=== PATIENT | male | born 1945 | race Caucasian/White ===

== ENCOUNTER → 2016-12-03 | Outpatient (CLI) | payer OTHER ==
[~2016-12-03] MED LIST: BIOT1TAB5 PO; CALC500C73 PO; CIPR-255 PO; CLC100 PO; CYAN10005 PO; DTR5 PO; EYED OPB; LOSA1TAB PO; MIRA1TAB3 PO; MULT-506 PO; OXYB5TAB21 PO; OXYC7.5T62 PO; SILD100T PO; TEMA15CA4 PO
[2016-12-03 13:21] LABS: ESTIMATED AVERAGE GLUCOSE 126 mg/dl; HA1C FLAG Normal (Normal)
[2016-12-03 14:02] LABS: ALT/SGPT 46 U/L (12-78); BLOOD UREA NITROGEN 18 mg/dl (7-18); CARBON DIOXIDE 27 mmol/L (21-32); CHLORIDE 107 mmol/L (98-107); CHOLESTEROL 147 mg/dl (0-200); GLUCOSE 101 mg/dl (70-99); POTASSIUM 4.3 mmol/L (3.5-5.1); SODIUM 142 mmol/L (136-145); TRIGLYCERIDES 166 mg/dl (0-150); VERY LOW DENSITY LIPOPROT CALC 33 mg/dl
[2016-12-03 14:05] LABS: CALCIUM 9.2 mg/dl (8.5-10.1)
[2016-12-03 14:06] LABS: ALB/GLOB RATIO 1.1 (0.9-2); ALKALINE PHOSPHATASE 109 U/L (45-117); AST/SGOT 30 U/L (15-37); CHOLESTEROL/HDL RATIO 3.8; HDL CHOLESTEROL 39 mg/dl; LDL CHOLESTEROL CALCULATED 75 mg/dl
[2016-12-04 09:53] LABS: AFP TUMOR MARKER SERUM 3.9 NG/ML (<6.1)
--- NOTE | 2016-12-07 11:46 | CODING QUERY MEDICAL NECESSITY ---
SUPPORTING DIAGNOSIS NEEDED A supporting diagnosis is required for the test/procedure performed on this patient in order for us to be reimbursed by the patient's insurance. Please provide a supporting diagnosis for the following test/procedure listed below next to the test name along with your signature. *If there is no additional diagnosis for this patient that would support the following test/procedure please document that below next to the test/procedure. Test(s)/Procedure(s) that require a supporting diagnosis: DOS 12/03 * PSA DIAGNOSIS: Provider Signature: Date: Thank you Sheri Becker [facility] Information Management Once completed, please kindly fax back to [phone] For questions please call [phone]
== END | disposition home or self-care (01) ==
LOC: C.LABMFLN 10:39
PROVIDERS: ATTEND Family Medicine
DX: E11.9 Type 2 diabetes mellitus without complications (principal); E78.5 Hyperlipidemia, unspecified; K74.60 Unspecified cirrhosis of liver; N52.9 Male erectile dysfunction, unspecified; Z12.5 Encounter for screening for malignant neoplasm of prostate

== ENCOUNTER → 2017-01-15 | Outpatient (CLI) | payer OTHER | END | disposition home or self-care (01) | LOC: C.LABMFLN 08:26 | PROVIDERS: ATTEND Urology | DX: N40.0 Benign prostatic hyperplasia without lower urinary tract symptoms (principal) ==

== ENCOUNTER → 2017-01-23 | Outpatient (CLI) | payer OTHER | END | disposition home or self-care (01) | LOC: C.PATHSPEC 17:17 | PROVIDERS: ATTEND Urology | DX: R97.20 Elevated prostate specific antigen [PSA] (principal); C61 Malignant neoplasm of prostate ==

== ENCOUNTER → 2017-02-04 | Outpatient (CLI) | payer OTHER ==
[~2017-02-04] MED LIST changes: +OPTIRAY 320 IV PRN
--- NOTE | 2017-02-04 12:29 | DIAGNOSTIC IMAGING REPORT ---
CT OF THE ABDOMEN AND PELVIS WITH CONTRAST CLINICAL HISTORY: Prostate cancer. COMPARISON STUDY: None. TECHNIQUE: Following IV administration of 119 mL of Optiray-320, axial images of the abdomen and pelvis were obtained from the lung bases to the proximal femurs. Images were reviewed in the axial, sagittal, and coronal planes. IV contrast was administered without complication. CT DOSE: 1063.31 mGycm FINDINGS: The caudate lobe is enlarged and there is slight nodularity of the liver surface. There are small varices within the abdomen, including esophageal varices. Sizes spleen is at the upper limits of normal. There is trace ascites within the pelvis and right paracolic gutter. There is no evidence for a bowel obstruction. The adrenal glands, kidneys and pancreas are normal. The patient status post Sylvie-en-Y gastric bypass. There is no evidence for a bowel obstruction. There is a small fat-containing umbilical hernia. No enlarged abdominal or pelvic lymph nodes are present. No suspicious osseous lesions are present. IMPRESSION: 1. No evidence of metastatic disease within the abdomen or pelvis. 2. Suspected cirrhosis with trace ascites and varices formation. Electronically signed by: Blaine Wakefield M.D. 02/04/2017 12:28 PM Dictated Date/Time: 02/04/2017 12:08 PM
--- NOTE | 2017-02-04 13:29 | DIAGNOSTIC IMAGING REPORT ---
WHOLE-BODY NUCLEAR BONE SCAN CLINICAL HISTORY: Prostate cancer. COMPARISON STUDY: Abdominal CT dated 02/04/2017. Chest x-rays dictated 06/01/2016. TECHNIQUE: Three hours following the IV administration of 27.2 mCi of technetium 99m MDP, whole body nuclear bone scan was performed in the anterior and posterior projections. FINDINGS: There is no abnormal osseous tracer deposition identified typical in appearance for bony metastatic disease. Typically degenerative uptake is identified in the shoulders, hips, knees, and ankles. There is expected excreted activity within the renal collecting system and bladder. IMPRESSION: There is no scintigraphic evidence of osseus metastatic disease. Electronically signed by: Rodrigo Mckee M.D. 02/04/2017 1:27 PM Dictated Date/Time: 02/04/2017 1:25 PM
== END | disposition home or self-care (01) ==
LOC: C.NUCL 09:42
PROVIDERS: ATTEND Urology
DX: C61 Malignant neoplasm of prostate (principal)

== ENCOUNTER 2017-03-07 05:31 | Inpatient (IN) | payer OTHER ==
[2017-02-18 09:24] VITALS: BMI 31.0
--- NOTE | 2017-02-18 09:57 | PAT Medication Instructions ---
Service Date Feb 18, 2017. Current Home Medication List Biotin (Biotin), 1 TAB PO QAM Calcium Carbonate (Calcium), 2 TABS PO QAM Cyanocobalamin (Vitamin B-12), 1,000 MCG PO QAM Losartan Potassium (Cozaar), 1 TAB PO QAM Multivitamin (Multivitamin), 1 TAB PO QAM Sildenafil Citrate (Viagra), 1 TAB PO DAILY PRN for UNDECIDED Temazepam (Restoril), 15 MG PO HS PRN for Insomnia Medication Instructions For Your Scheduled Surgery - Hold the following medications 2 weeks prior to surgery: Biotin (Biotin), 1 TAB PO QAM - Hold the following medications the morning of surgery: Calcium Carbonate (Calcium), 2 TABS PO QAM Cyanocobalamin (Vitamin B-12), 1,000 MCG PO QAM Losartan Potassium (Cozaar), 1 TAB PO QAM Multivitamin (Multivitamin), 1 TAB PO QAM Sildenafil Citrate (Viagra), 1 TAB PO DAILY PRN - Take the following medications as scheduled the night before surgery: Temazepam (Restoril), 15 MG PO HS PRN for Insomnia Nothing to eat or drink after midnight If you have any questions please call us at [phone] or [phone] or [phone]
[2017-02-18 10:19] LABS: BASO % 0.5 %; BASO ABS # 0.03 K/uL (0-0.2); COMPLETE YES; EOS % 1.9 %; HEMATOCRIT 45.7 % (42-52); IG% 0.2 %; LYMPH % 38.1 %; MEAN CELL VOLUME 88.6 fL (80-100); MEAN CORPUSCULAR HEMOGLOBIN 29.8 pg (25-34); MEAN CORPUSCULAR HGB CONC 33.7 g/dl (32-36); MEAN PLATELET VOLUME 9.9 fL (7.4-10.4); NEUT % 46.3 %; PLATELET COUNT 191 K/uL (130-400); RED BLOOD COUNT 5.16 M/uL (4.7-6.1); WHITE BLOOD COUNT 5.78 K/uL (4.8-10.8)
[2017-02-18 10:23] LABS: URINE APPEARANCE CLEAR (CLEAR); URINE BILIRUBIN NEG (NEG); URINE COLOR YELLOW; URINE NITRITE NEG (NEG); URINE PH 6.5 (4.5-7.5); URINE SPECIFIC GRAVITY 1.016 (1.000-1.030); UROBILINOGEN NEG (NEG)
[2017-02-18 10:51] LABS: BUN/CREATININE RATIO 15.4 (10-20); CALCIUM 9.1 mg/dl (8.5-10.1); CREATININE 1.1 mg/dl (0.60-1.40); POTASSIUM 4.4 mmol/L (3.5-5.1)
[2017-02-18 10:53] LABS: MANUAL MICROSCOPIC REQUIRED? NO; REVIEW REQ? NO
[~2017-03-07] VITALS: Ht 188 cm; Wt 110.0 kg
[2017-03-07] VITALS (8 sets, daily range): BP systolic 109–144; BP diastolic 71–91; PULSE 83–95; TEMP 36.5–37.2; O2SAT 93–97; Ht 188 cm; Wt 110.0 kg
[~2017-03-07 05:31] MED LIST changes: -CIPR-255 PO; -CLC100 PO; -DTR5 PO; -EYED OPB; -MIRA1TAB3 PO; -OPTIRAY 320 IV PRN; -OXYB5TAB21 PO; -OXYC7.5T62 PO
[2017-03-07] MEDS ORDERED: LACTATED RINGER'S 1000ML 1,000 ML IV SCH (06:00)
[2017-03-07] MEDS ORDERED: CEFAZOLIN 2000 MG/60 ML D5W IV SCH (06:00)
[2017-03-07] MEDS ORDERED: HEPARIN SOD 5000 UNIT/0.5 ML CARP SQ SCH (06:00)
[2017-03-07] MEDS ORDERED: EYED OPB (06:26)
--- NOTE | 2017-03-07 07:12 | History & Physical Bridge Note ---
H&P Re-Evaluation Bridge Note: I have examined the patient, reviewed the History & Physical and in the interval since the performance of the History & Physical I have noted the following changes of clinical significance: No changes noted
[2017-03-07] MEDS ORDERED: EpHEDrine SULFATE INJ 50 MG/ML AMP IV PRN (07:15)
[2017-03-07] MEDS ORDERED: ONDANSETRON INJ 2 MG/ML 2 ML VIAL IV PRN ×2 (07:15→11:00)
[2017-03-07] MEDS ORDERED: FENTANYL CITRATE INJ 50 MCG/1 ML 2 ML VIAL IV PRN (07:15)
[2017-03-07] MEDS ORDERED: ATROPINE SULFATE 0.1 MG/ML 5ML SYR IV PRN (07:15)
[2017-03-07] MEDS ORDERED: HYDROmorphone INJ 1 MG/ML SYR IV PRN ×2 (07:15→11:00)
[2017-03-07] MEDS ORDERED: DEXAMETHASONE SOD INJ 4 MG/ML VIAL ONE (07:32)
[2017-03-07] MEDS ORDERED: ONDANSETRON INJ 2 MG/ML 2 ML VIAL ONE (07:32)
[2017-03-07] MEDS ORDERED: GLYCOPYRROLATE INJ 0.2 MG/ML VIAL ONE (07:32)
[2017-03-07] MEDS ORDERED: LARYING-O-JET KIT (LTA) ONE ×2 (07:32)
[2017-03-07] MEDS ORDERED: EpHEDrine SULFATE 50MG/5ML SYR ONE (07:32)
[2017-03-07] MEDS ORDERED: PHENYLEPHRINE 100MCG/ML 5ML SYR ONE (07:32)
[2017-03-07] MEDS ORDERED: FENTANYL CITRATE INJ 50 MCG/1 ML 2 ML VIAL ONE ×2 (07:32→09:18)
[2017-03-07] MEDS ORDERED: MIDAZOLAM HCL 1 MG/ML 2ML VIAL ONE (07:32)
[2017-03-07] MEDS ORDERED: PROPOFOL IV EMULSION 10 MG/ML 20 ML VIAL IV ONE (07:32)
[2017-03-07] MEDS ORDERED: NEOSTIGMINE METHYLSULFATE 5 MG/5 ML SYR ONE (07:32)
[2017-03-07] MEDS ORDERED: ROCURONIUM BROMIDE 10 MG/ML 5 ML VIAL ONE (07:32)
[2017-03-07] MEDS ORDERED: LIDOCAINE HCL 2% 2 ML VIAL (20MG/ML) ONE (07:32)
[2017-03-07] MEDS ORDERED: BUPIVACAINE 0.5 % 5 MG/1 ML MPF 30ML VIAL ONE (07:33)
[2017-03-07] MEDS ORDERED: HYDROmorphone INJ 2 MG/ML SYR/VIAL ONE (08:21)
[2017-03-07] MEDS ORDERED: OXYCODONE/ACETAMINOPHEN 7.5-325 TAB PO PRN (11:00)
[2017-03-07] MEDS ORDERED: ACETAMINOPHEN 500 MG TAB PO SCH (11:00)
[2017-03-07] MEDS ORDERED: TEMAZEPAM 15 MG CAP PO PRN (11:00)
[2017-03-07] MEDS ORDERED: ACETAMINOPHEN 1000 MG/100 ML IV IV ONE (11:03)
--- NOTE | 2017-03-07 11:08 | [facility] Post Operative Brief Note ---
Immediate Operative Summary Operative Date Mar 07, 2017. Pre-Operative Diagnosis cT2a Sh[place] 5+5 Prostate cancer Post-Operative Diagnosis Same as preop Procedure(s) Performed Robotic-assisted Laparoscopic Prostatectomy,with bilateral pelvic lymph node dissection Surgeon Dr. Antoni Sutherland Hazmat Tanker Driver Surgeon(s) SCOOBY Nicole Estimated Blood Loss 100 cc Findings Watertight anastomosis, excellent hemostasis Specimens A: kavitha-prostatic fat B: prostate and seminal vesicles C: right pelvic lymph nodes D: left pelvic lymph nodes (clip) Drains 18 fr david, #10 LLQ CRISTINA drain Anesthesia GAET + local Complication(s) None Disposition Recovery Room / PACU
--- NOTE | 2017-03-07 11:20 | [facility] Operative Report ---
Operative Report Operative Date Mar 07, 2017. Pre-Operative Diagnosis cT2a [place] 5+5 Prostate cancer Post-Operative Diagnosis Same as preop Procedure(s) Performed Robotic-assisted Laparoscopic Prostatectomy,with bilateral pelvic lymph node dissection Surgeon Dr. Antoni Sutherland [place] Cutter Surgeon(s) SCOOBY Nicole Estimated Blood Loss 100 cc Findings Watertight anastomosis, excellent hemostasis. Specimens A: kavitha-prostatic fat B: prostate and seminal vesicles C: right pelvic lymph nodes D: left pelvic lymph nodes (clip) Drains 18 fr vivar, #10 LLQ CRISTINA drain Anesthesia GAET + local Complication(s) None Disposition Recovery Room / PACU Indications Patient is a 71-year-old male with a prostate nodule and elevated PSA of approximately 10 was been found to have high-grade prostate cancer all positive cores being on the left side of the prostate gland. After discussion of risks and benefits he is being brought in today for surgical management of this disease. He understands the high risk for the need for further therapy including androgen deprivation and salvage radiation therapy in the future. Lymph node dissection is planned. Seen that he lives in [place] a suprapubic tube will not be placed. Please see H&P for further details. Description of Procedure Patient was properly identified and brought to the operative suite after identification of appropriate consent in the chart. General anesthesia with endotracheal patient was initiated and patient was prepped and draped in the standard fashion for this procedure. Full timeout procedure was followed. All port sites were anesthetized with local prior to incision. A supraumbilical incision was made and the abdomen was entered under direct visualization using a visual obturator. Abdomen was insufflated to 15 mmHg and ports were placed for a fourth arm robotic template including 2 left-sided 7 mm robotic ports, one right 7 mm robotic port and a 12 and 5 mm traffic assistant port. Adhesions were noted in the right upper quadrant at the site of the patient's previous surgery with these were well removed from the surgical field. Patient was placed in Trendelenburg and robot was brought in and docked. Bladder was drained with a Vivar catheter prior to initiation of surgery. Bladder was dropped to the level of the pubic bone and prostate was defatted. This was sent for pathologic analysis. Endopelvic fascia was sharply entered and dissection was carried out to the level of the apex on both sides while skeletonizing the dorsal venous complex. This was then controlled using an 0 Vicryl suture on a CT1 needle in a [id number] fashion. Seen the lack of any positive biopsies on the right hand side nerve sparing dissection was initiated as planned. A wider dissection was carried out on the left-hand side. 30 down lens was then used to visualize the bladder neck and to place it on traction. Dissection was carried down through the bladder neck to the level of the Vivar with an excellent small aperture to the bladder neck. This was divided and Vivar was used for anterior traction. Posterior dissection was carried out, dropping the bladder neck and rapidly encountering the vas deferens and seminal vesicles in the midline. Vessels were controlled using monopolar and bipolar cautery and the vas deferens were divided. Rectum was dropped in the midline down to the level of the apex of the prostate. Seminal vesicles were dissected free intact. Attention was turned to the prostatic pedicles. On the right- hand side these were controlled using cold Weck clips and cold scissors to allow for a full nerve sparing dissection to the level of the apex. On the left -hand side the vessel suture was used to control the pedicle in a wider dissection was carried out care being taken to avoid any injury to the rectum. After this was complete the dorsal venous complex was divided and urethra was skeletonized. Care was taken to avoid violation of the apex of the prostate gland. Urethra was divided as well as the rectourethralis fibers. Prostate was then removed from the pelvis and placed within an Endo Catch bag for retrieval at the end of the case. Attention was turned to the pelvis were excellent hemostasis was appreciated. Rectum was insufflated under saline irrigation and noted to be free of any injuries or perforations. Attention was then turned to the pelvic lymph node dissection. This was carried out using the confines of the external iliac artery and vein pelvic sidewall and obturator nerve on both sides. Weck clips, bipolar and monopolar cautery were used as necessary to control small vessels and lymphatics. The left-handed pelvic lymph node packet was labeled with a clip prior to completion. Excellent hemostasis was noted on both sides after completion of case. Surgicel was left in the right obturator fossa. After this was complete the lymph node packets were placed within an Endo Catch bag for retrieval. A running anastomosis was performed between the bladder neck and urethra using a double-armed V-lock suture. Excellent apposition of the urethra bladder neck was noted. Vivar catheter was visualized entering the bladder prior to completion of closure. 10 mL of sterile water were placed within the balloon and anastomosis was tested with greater than 120 mL of sterile saline and noted to be watertight. Catheter was placed to gravity drainage and fourth arm was removed. #10 CRISTINA drain was brought in via the fourth arm port and placed within the pelvis while avoiding placing it directly over the anastomosis. Robotic instruments were removed and robot was de-docked. Strings to the Endo Catch bag were brought up through the supraumbilical port which was then expanded sufficiently to allow for easy removal of the specimen bags. Excess carbon dioxide gas was removed from the abdomen and the supraumbilical incision was closed at the level of the fascia using an 0 Vicryl suture on a UR 5 needle. 2- 0 silk was used to secure the drain in place and 4-0 Monocryl were used at the skin incisions as well as Dermabond. Anesthesia was reversed and patient was transferred to the recovery room in stable condition. He will be admitted for standard postoperative management. I attest to the content of the Intraoperative Record and any orders documented therein. Any exceptions are noted below.
[2017-03-07 11:25] LABS: MEAN CELL VOLUME 89.1 fL (80-100); MEAN CORPUSCULAR HEMOGLOBIN 29.6 pg (25-34); MEAN PLATELET VOLUME 9.4 fL (7.4-10.4); PLATELET COUNT 198 K/uL (130-400); RED BLOOD COUNT 4.94 M/uL (4.7-6.1); WHITE BLOOD COUNT 9.42 K/uL (4.8-10.8)
[2017-03-07 11:50] LABS: BUN/CREATININE RATIO 13.6 (10-20); CALCIUM 8.4 mg/dl (8.5-10.1); CREATININE 1.2 mg/dl (0.60-1.40); POTASSIUM 4.9 mmol/L (3.5-5.1)
--- NOTE | 2017-03-07 11:56 | Anesthesiology Progress Note ---
Anesthesia Post Op Note Date & Time Mar 07, 2017 at 11:56 Vital Signs Pain Intensity: 0 Vital Signs Past 12 Hours Date Time Temp Pulse Resp B/P (MAP) Pulse Ox O2 Delivery O2 Flow Rate FiO2 03/07/17 11:38 36.6 89 16 140/81 (103) 95 Nasal Cannula 3 03/07/17 11:26 137/87 03/07/17 11:23 95 7 97 03/07/17 11:23 95 7 03/07/17 11:21 131/93 03/07/17 11:18 99 10 96 03/07/17 11:18 99 10 03/07/17 11:13 96 10 96 03/07/17 11:13 96 10 03/07/17 11:11 123/82 03/07/17 11:08 96 7 96 03/07/17 11:08 96 7 03/07/17 11:06 147/78 03/07/17 11:04 129/92 03/07/17 11:03 101 11 03/07/17 11:03 36.6 100 14 129/92 95 Mask 10 03/07/17 11:03 100 11 95 03/07/17 05:47 36.5 83 20 144/91 (108) 94 Room Air Notes Mental Status: alert / awake / arousable, participated in evaluation Pt Amnestic to Procedure: Yes Nausea / Vomiting: adequately controlled Pain: adequately controlled Airway Patency, RR, SpO2: stable & adequate BP & HR: stable & adequate Hydration State: stable & adequate Anesthetic Complications: no major complications apparent
[2017-03-07 12:25] LABS: MEAN CORPUSCULAR HGB CONC 33.2 g/dl (32-36)
[2017-03-07] MEDS: LACTATED RINGER'S 1000ML 1,000 ML IV SCH ×3 (13:22→22:56)
[2017-03-07] MEDS ORDERED: OXYBUTYNIN CHLORIDE 5 MG TAB PO PRN (14:00)
[2017-03-07] MEDS: KETOROLAC TROMETHAMINE 15 MG/ML VIAL IV PRN ×2 (14:42→20:53)
[2017-03-07 15:12] LABS: PROTHROMBIN TIME (PATIENT) 11.2 SECONDS (9.0-12.0)
[2017-03-07] MEDS: CEFAZOLIN IV 2,000 MG in DEXTROSE 5% 50ML 50 ML IV SCH (18:17)
[2017-03-07] MEDS: HEPARIN SOD 5000 UNIT/0.5 ML CARP SQ SCH (18:25)
[2017-03-07] MEDS: DOCUSATE SODIUM 100 MG CAP PO SCH (20:36)
[2017-03-07] MEDS: ACETAMINOPHEN IV 1,000 MG in EMPTY BAG 0 ML IV SCH (21:40)
[2017-03-08] MEDS: CEFAZOLIN IV 2,000 MG in DEXTROSE 5% 50ML 50 ML IV SCH ×2 (02:17→09:53)
[2017-03-08 03:32] VITALS: BP 136/87; PULSE 88; TEMP 37.1; O2SAT 92
[2017-03-08] MEDS: ACETAMINOPHEN IV 1,000 MG in EMPTY BAG 0 ML IV SCH (05:32)
[2017-03-08] MEDS: LACTATED RINGER'S 1000ML 1,000 ML IV SCH ×2 (05:32→08:33)
[2017-03-08] MEDS: KETOROLAC TROMETHAMINE 15 MG/ML VIAL IV PRN ×2 (06:30→12:22)
[2017-03-08] MEDS: HEPARIN SOD 5000 UNIT/0.5 ML CARP SQ SCH (06:31)
[2017-03-08 06:56] LABS: BASO % 0.2 %; BASO ABS # 0.02 K/uL (0-0.2); COMPLETE YES; EOS % 0.5 %; HEMATOCRIT 42.2 % (42-52); IG% 0.2 %; LYMPH % 24.9 %; LYMPH ABS # 2.36 K/uL (1.2-3.4); MEAN CELL VOLUME 89.4 fL (80-100); MEAN CORPUSCULAR HEMOGLOBIN 29.4 pg (25-34); MEAN CORPUSCULAR HGB CONC 32.9 g/dl (32-36); MEAN PLATELET VOLUME 9.5 fL (7.4-10.4); MONO % 9.4 %; NEUT % 64.8 %; PLATELET COUNT 183 K/uL (130-400); RED BLOOD COUNT 4.72 M/uL (4.7-6.1); WHITE BLOOD COUNT 9.47 K/uL (4.8-10.8)
[2017-03-08 07:25] VITALS: BP 112/78; PULSE 78; TEMP 37; O2SAT 91
[2017-03-08 07:27] VITALS: O2SAT 91
[2017-03-08 07:29] LABS: CALCIUM 8.3 mg/dl (8.5-10.1); CREATININE 1.1 mg/dl (0.60-1.40); POTASSIUM 4.1 mmol/L (3.5-5.1)
--- NOTE | 2017-03-08 07:37 | Anesthesiology Progress Note ---
Anesthesia Post Op Note Date & Time Mar 08, 2017 at 07:37 Vital Signs Pain Intensity: 2.0 Vital Signs Past 12 Hours Date Time Temp Pulse Resp B/P (MAP) Pulse Ox O2 Delivery O2 Flow Rate FiO2 03/08/17 07:27 91 Room Air 03/08/17 07:25 37.0 78 14 112/78 (89) 91 Room Air 03/08/17 03:32 37.1 88 16 136/87 (103) 92 Room Air 03/07/17 22:44 37.2 86 18 109/71 (84) 93 Room Air 03/07/17 19:55 37.2 89 18 119/71 (87) 93 Room Air 03/07/17 19:45 Room Air Notes Mental Status: alert / awake / arousable, participated in evaluation Pt Amnestic to Procedure: Yes Nausea / Vomiting: adequately controlled Pain: adequately controlled Airway Patency, RR, SpO2: stable & adequate BP & HR: stable & adequate Hydration State: stable & adequate Anesthetic Complications: no major complications apparent
[2017-03-08] MEDS: DOCUSATE SODIUM 100 MG CAP PO SCH (08:36)
--- NOTE | 2017-03-08 08:48 | Progress Note ---
Subjective Date of Service: Mar 08, 2017. Subjective Pt evaluation today including: conversation w/ patient, physical exam, chart review, lab review, review of inpatient medication list Pain: Incisional and lower abdominal, controlled PO Intake: Tony clears Voiding: david catheter in place (urine clearing, light pink) 71 yo male POD#1 s/p RALRP, BPLND. He has been ambulatory, tony clears, no emesis , some incisional pain. Feels well overall, CRISTIAN OP ~ 70 cc per shift, but history of ascites is noted. No other complaints. Review of Systems Constitutional: No fever, No chills Eyes: No worsening of vision ENT: No hearing loss Respiratory: No sputum, No wheezing, No shortness of breath Cardiac: No chest pain Abdomen: + pain, No nausea, No vomiting Male : + hematuria (resolving) Neurologic: No memory loss Psychiatric: No depression symptoms Endo: No fatigue Skin: No new/changing skin lesions Objective Vital Signs Date Time Temp Pulse Resp B/P (MAP) Pulse Ox O2 Delivery O2 Flow Rate FiO2 03/08/17 07:27 91 Room Air 03/08/17 07:25 37.0 78 14 112/78 (89) 91 Room Air 03/08/17 03:32 37.1 88 16 136/87 (103) 92 Room Air 03/07/17 22:44 37.2 86 18 109/71 (84) 93 Room Air 03/07/17 19:55 37.2 89 18 119/71 (87) 93 Room Air 03/07/17 19:45 Room Air 03/07/17 15:15 36.9 83 18 128/85 (99) 94 Nasal Cannula 2.0 03/07/17 14:20 36.7 90 18 130/85 (100) 95 Room Air 03/07/17 13:16 37.1 88 18 144/88 (106) 97 Nasal Cannula 2.0 03/07/17 12:45 37.0 87 16 142/91 (108) 94 Nasal Cannula 2.0 03/07/17 12:15 93 Nasal Cannula 2.0 03/07/17 12:15 36.8 95 16 125/85 (98) 93 Nasal Cannula 2.0 03/07/17 12:15 93 Nasal Cannula 2.0 03/07/17 12:07 90 14 03/07/17 12:07 90 14 93 03/07/17 12:06 134/86 03/07/17 12:02 88 12 93 03/07/17 12:02 88 12 03/07/17 12:01 124/90 03/07/17 11:57 91 8 03/07/17 11:57 91 8 125/81 92 03/07/17 11:52 89 8 03/07/17 11:52 88 8 93 03/07/17 11:51 135/87 03/07/17 11:47 88 5 94 03/07/17 11:47 88 5 03/07/17 11:46 128/93 03/07/17 11:44 140/81 03/07/17 11:42 90 7 03/07/17 11:42 90 7 95 03/07/17 11:41 147/89 03/07/17 11:38 36.6 89 16 140/81 (103) 95 Nasal Cannula 3 03/07/17 11:37 91 8 03/07/17 11:37 91 8 95 03/07/17 11:36 148/89 03/07/17 11:32 90 6 97 03/07/17 11:32 91 6 03/07/17 11:31 149/79 03/07/17 11:27 97 7 97 03/07/17 11:27 96 7 03/07/17 11:26 137/87 03/07/17 11:23 95 7 97 03/07/17 11:23 95 7 03/07/17 11:21 131/93 03/07/17 11:18 99 10 96 03/07/17 11:18 99 10 03/07/17 11:13 96 10 96 03/07/17 11:13 96 10 03/07/17 11:11 123/82 03/07/17 11:08 96 7 96 03/07/17 11:08 96 7 03/07/17 11:06 147/78 03/07/17 11:04 129/92 03/07/17 11:03 101 11 03/07/17 11:03 36.6 100 14 129/92 95 Mask 10 03/07/17 11:03 100 11 95 Physical Exam General Appearance: WD/WN, no apparent distress ENT: hearing grossly normal Neck: supple, no adenopathy Respiratory/Chest: no respiratory distress, no accessory muscle use Cardiovascular: no JVD Abdomen: non tender, soft, + pertinent finding (inc c/d/i) Extremities: non-tender Neurologic/Psychiatric: alert, oriented x 3 Skin: normal color Laboratory Results Last 24 Hours Test 03/07/17 11:14 03/07/17 14:40 03/08/17 06:34 White Blood Count 9.42 K/uL 9.47 K/uL Red Blood Count 4.94 M/uL 4.72 M/uL Hemoglobin 14.6 g/dL 13.9 g/dL Hematocrit 44.0 % 42.2 % Mean Corpuscular Volume 89.1 fL 89.4 fL Mean Corpuscular Hemoglobin 29.6 pg 29.4 pg Mean Corpuscular Hemoglobin Concent 33.2 g/dl 32.9 g/dl RDW Standard Deviation 45.8 fL 46.0 fL RDW Coefficient of Variation 14.0 % 14.1 % Platelet Count 198 K/uL 183 K/uL Mean Platelet Volume 9.4 fL 9.5 fL Sodium Level 140 mmol/L 140 mmol/L Potassium Level 4.9 mmol/L 4.1 mmol/L Chloride Level 107 mmol/L 104 mmol/L Carbon Dioxide Level 27 mmol/L 30 mmol/L Anion Gap 6.0 mmol/L 6.0 mmol/L Blood Urea Nitrogen 16 mg/dl 17 mg/dl Creatinine 1.20 mg/dl 1.10 mg/dl Est Creatinine Clear Calc Drug Dose 76.7 ml/min 83.7 ml/min Estimated GFR () 71.1 79.0 Estimated GFR (Non- 61.3 68.1 BUN/Creatinine Ratio 13.6 15.0 Random Glucose 137 mg/dl 95 mg/dl Calcium Level 8.4 mg/dl 8.3 mg/dl Prothrombin Time 11.2 SECONDS Prothromb Time International Ratio 1.0 Hepatitis C Antibody Screen NEG Neutrophils (%) (Auto) 64.8 % Lymphocytes (%) (Auto) 24.9 % Monocytes (%) (Auto) 9.4 % Eosinophils (%) (Auto) 0.5 % Basophils (%) (Auto) 0.2 % Neutrophils # (Auto) 6.13 K/uL Lymphocytes # (Auto) 2.36 K/uL Monocytes # (Auto) 0.89 K/uL Eosinophils # (Auto) 0.05 K/uL Basophils # (Auto) 0.02 K/uL Immature Granulocyte % (Auto) 0.2 % Immature Granulocyte # (Auto) 0.02 K/uL Assessment and Plan A/P 71 yo male POD#1 s/p RALRP, BPLND Doing well Advance diet today, continue with ambulation Expect DC CRISTINA and DC home after lunch DC instructions and OP f/u reviewed Patient vocalizes understanding of the treatment plan.
[2017-03-08] MEDS ORDERED: OXYC7.5T62 PO (08:56)
[2017-03-08] MEDS ORDERED: CIPR-255 PO (08:56)
[2017-03-08] MEDS ORDERED: DTR5 PO (08:56)
[2017-03-08] MEDS ORDERED: CLC100 PO (08:56)
--- NOTE | 2017-03-08 08:59 | Discharge Instructions ---
Discharge Instructions Date of Service Mar 08, 2017. Admission Reason for Admission: Prostate Cancer Discharge Discharge Diagnosis / Problem: Prostate Cancer Discharge Goals Goal(s): Decrease discomfort, Improve disease control, Prevent Disease Progression Activity Recommendations Activity Limitations: per Instructions/Follow-up section . Instructions / Follow-Up Instructions / Follow-Up 1. Do not lift >15lbs x 6 weeks. 2. No heavy exercise x 6 weeks. You may engage in light activity such as walking and stairs as tolerated. 3. No sexual intercourse until cleared by Dr. Sutherland or Dr. Alejandre. 4. Do not drive x [address] while taking narcotics. 5. Finish all of the antibiotic you have been prescribed. 6. Immediately call our office at [phone] if your catheter is removed for any reason. 7. Follow-up as scheduled. Please call our office at [phone] if you need to reschedule for any reason. . Current Hospital Diet Hospital Diet(s): Regular Diet Discharge Diet Recommended Diet: Regular Diet Procedures Procedures Performed: Robotic-assisted Laparoscopic Prostatectomy,with bilateral pelvic lymph node dissection Pending Studies Studies pending at discharge: no Medical Emergencies . Who to Call and When: Medical Emergencies: If at any time you feel your situation is an emergency, please call 911 immediately. . Non-Emergent Contact Non-Emergency issues call your: Primary Care Provider, Urologist Call Non-Emergent contact if: temperature is above 101 . . "Provider Documentation" section prepared by Trinity Hendrickson. . VTE Core Measure Inpt VTE Proph given/why not?: Unfractionated heparin SQ, SCD's [place] Drug Monitoring Program Search Results: no issues identified
[2017-03-08] MEDS ORDERED: CALCIUM CARBONATE PO SCH (09:00)
[2017-03-08] MEDS ORDERED: MULTIVITAMIN TAB PO SCH (09:00)
[2017-03-08] MEDS ORDERED: CYANOCOBALAMIN 500 MCG TAB (VIT B-12) PO SCH (09:00)
[2017-03-08] MEDS ORDERED: LOSARTAN POTASSIUM 25 MG TAB PO SCH (09:00)
[2017-03-08 09:24] VITALS: BP 112/78; PULSE 78; TEMP 37; O2SAT 91
[2017-03-08 11:43] VITALS: BP 120/74; PULSE 82; TEMP 36.9; O2SAT 90
--- NOTE | 2017-03-20 08:34 | Discharge Summary ---
Discharge Summary Date of Service Mar 20, 2017. Discharge Summary Admission Date: Mar 07, 2017 at 10:55 Discharge Date: Mar 08, 2017 Discharge Disposition: Home Primary Diagnosis: Prostate cancer Procedures: Robotic prostatectomy on 03/07/2017 Consultations: None Pending Studies/Follow-Up: Pathology report Discharge Instructions Last Recorded Wt (Kilograms): 110.000 Activity Recommendations: lifting limitation (20 lbs), shower/bathe limit (as listed) Return to School/Work: limitations Diet At Discharge: Regular Allergies: Coded Allergies: No Known Allergies (Unverified , 03/07/17) Home Health Services: none Special Care: Call your doctor if: * Temperature above 101 degrees * Pain not relieved by pain medicine ordered * There is increased drainage or redness from any incision * You have any unanswered questions or concerns. Avoid all tobacco products. If you need help to stop smoking, call [place]'s FREE QUITLINE at . This is a free call. Admission Information Historian: patient Severity: moderate Complaint Status: improved Admission HPI: 71-year-old male found as an outpatient after prostate biopsy to have adenocarcinoma of the prostate has chosen robotic prostatectomy to manage his disease. See H&P for further details. He is being admitted for this purpose Hospital Course Patient was admitted to the hospital after uncomplicated robotic prostatectomy is planned. Please see operative report for further details. Over the following postoperative days his diet and activity were rapidly advanced. A postoperative day #1 he was ambulatory in the hallways, tolerating regular diet and considered stable for discharge home. He was comfortable on oral pain medication. No worrisome changes and labs were noted. Please see discharge instruction sheet and medication list for limitations and home prescriptions. Total time spent on discharge = This includes examination of the patient, discharge planning, medication reconciliation, and communication with other providers.
== END 2017-03-08 13:50 | disposition home or self-care (01) | DRG 708 ==
LOC: C.ACU 05:31 → C.MSN 10:55 → ENRESERV 11:59
PROVIDERS: ADMIT Urology; ATTEND Urology
PROC: 8E0W4CZ Robotic Assisted Procedure of Trunk Region, Percutaneous Endoscopic Approach (ICD-10-PCS; principal; 2017-03-07 07:30)
PROC: 0VT04ZZ Resection of Prostate, Percutaneous Endoscopic Approach (ICD-10-PCS; principal; 2017-03-07 07:30)
PROC: 07BC4ZX Excision of Pelvis Lymphatic, Percutaneous Endoscopic Approach, Diagnostic (ICD-10-PCS; principal; 2017-03-07 07:30)
PROC: 0VT34ZZ Resection of Bilateral Seminal Vesicles, Percutaneous Endoscopic Approach (ICD-10-PCS; principal; 2017-03-07 07:30)
DX: C61 Malignant neoplasm of prostate (principal); E11.9 Type 2 diabetes mellitus without complications; N52.9 Male erectile dysfunction, unspecified; E78.5 Hyperlipidemia, unspecified; G47.00 Insomnia, unspecified; Z85.828 Personal history of other malignant neoplasm of skin; G47.33 Obstructive sleep apnea (adult) (pediatric); B07.9 Viral wart, unspecified; Z90.49 Acquired absence of other specified parts of digestive tract; Z80.1 Family history of malignant neoplasm of trachea, bronchus and lung; Z82.49 Family history of ischemic heart disease and other diseases of the circulatory system; Z79.899 Other long term (current) drug therapy; Z98.84 Bariatric surgery status; Z86.010 Personal history of colon polyps; Z80.52 Family history of malignant neoplasm of bladder; Z68.31 Body mass index [BMI] 31.0-31.9, adult; R31.9 Hematuria, unspecified

== ENCOUNTER → 2017-03-18 | Outpatient (CLI) | payer OTHER ==
[~2017-03-18] MED LIST changes: +CIPR-255 PO; +CLC100 PO; +DTR5 PO; +EYED OPB; +OXYC7.5T62 PO
== END | disposition home or self-care (01) ==
LOC: C.LABSPEC 10:48
PROVIDERS: ATTEND Urology
DX: C61 Malignant neoplasm of prostate (principal)

== ENCOUNTER → 2017-04-23 | Outpatient (CLI) | payer OTHER | END | disposition home or self-care (01) | LOC: C.LABMFLN 09:54 | PROVIDERS: ATTEND Family Medicine | DX: R97.20 Elevated prostate specific antigen [PSA] (principal); C61 Malignant neoplasm of prostate ==

== ENCOUNTER → 2017-06-03 | Outpatient (CLI) | payer OTHER | END | disposition home or self-care (01) | LOC: C.LABMFLN 09:33 | PROVIDERS: ATTEND Urology | DX: R97.20 Elevated prostate specific antigen [PSA] (principal); C61 Malignant neoplasm of prostate ==

== ENCOUNTER 2017-09-12 16:37 | Emergency (ER) | payer OTHER ==
[~2017-09-12] VITALS: Ht 188 cm; Wt 109.9 kg
[~2017-09-12 16:37] MED LIST changes: -CIPR-255 PO; -CLC100 PO; +DSWCR TOP; -DTR5 PO; -EYED OPB; +MIRA1TAB3 PO; -OXYC7.5T62 PO; +TROS1CAP2 PO
[2017-09-12 16:48] VITALS: TEMP 36.5; Ht 188 cm; Wt 109.9 kg
[2017-09-12] MEDS ORDERED: IBUPROFEN 600 MG TAB PO STA (17:26)
[2017-09-12] MEDS ORDERED: CYCLOBENZAPRINE HCL 10 MG TAB PO STA (17:26)
[2017-09-12] MEDS ORDERED: OXYCODONE/ACETAMINOPHEN 5-325 TAB PO STA (17:26)
--- NOTE | 2017-09-12 17:31 | EMERGENCY ROOM VISIT NOTE ---
History First contact with patient: 17:10 Chief Complaint: FALL Stated Complaint: PAIN AFTER FALL History of Present Illness The patient is a 71 year old male who presents to the Emergency Room with complaints of low back pain that is radiating down his legs right greater than left. The patient had 2 falls in the last 2 weeks. The initial fall was on ice. He reports landing on his buttocks and his left side. He also hit his head during that incident. He denies any headache. The patient does not take any blood thinners. He denies any neck pain. Last night, the patient was texting when he stepped off of a curb falling onto his buttocks and left side. He did not hit his head. He did strike the left side of his rib cage. The patient denies any history of back pain. He denies any numbness, tingling or weakness in his lower extremities. He has tried ibuprofen and icy hot with minimal relief of his symptoms. He denies any urinary or bowel incontinence. He denies any abdominal pain. Review of Systems 10 system review performed and negative unless noted in HPI or below Past Medical/Surgical History Diabetes, hypertension, prostate cancer, status post gastric bypass, cholecystectomy Family History Heart disease, hypertension Social History Smoking Status: Never Smoker Marital Status: Occupation Status: employed Current/Historical Medications Scheduled Biotin (Biotin), 1,000 MCG PO QAM Calcium Carbonate (Calcium), 1,000 MG PO QAM Cyanocobalamin (Vitamin B-12), 1,000 MCG PO QAM Cyclobenzaprine Hcl (Flexeril), 10 MG PO TID Lidocaine (Lidocaine), 1 PATCH TD DAILY Losartan Potassium (Cozaar), 25 MG PO QAM Mirabegron (Myrbetriq Er), 50 MG PO DAILYBB Multivitamin (Multivitamin), 1 TAB PO QAM Trospium Chloride (Trospium Chloride Er), 60 MG PO DAILY Scheduled PRN Desonide 0.05% (Desowen 0.05%), 1 APPLN TOP BID PRN for Psoriasis Flares Oxycodone/Acetaminophen 5MG/325MG (Percocet 5MG/325MG), 1-2 TABS PO Q4H PRN for Pain Sildenafil Citrate (Viagra), 100 MG PO DAILY PRN for ED Temazepam (Restoril), 15 MG PO HS PRN for Insomnia Physical Exam Vital Signs Date Time Temp Pulse Resp B/P (MAP) Pulse Ox O2 Delivery O2 Flow Rate FiO2 09/12/17 18:45 88 14 123/82 99 Room Air 09/12/17 16:48 36.5 88 17 121/87 95 Room Air Physical Exam VITALS: Vitals are noted on the nurse's note and reviewed by myself. Vital signs stable. GENERAL: 71-year-old male, in no acute distress, nondiaphoretic, well-developed well-nourished. SKIN: The skin was without rashes, erythema, edema, or bruising. HEAD: Normocephalic atraumatic. NECK: Supple without nuchal rigidity. Cervical spine is nontender. HEART: Regular rate and rhythm without murmurs gallops or rubs. LUNGS: Clear to auscultation bilaterally without wheezes, rales or rhonchi. No accessory muscle use. Tenderness to palpation over the left mid anterior thorax. No crepitus. ABDOMEN: Positive bowel sounds x 4.Soft, nontender, without organomegaly. No guarding or rebound tenderness. MUSCULOSKELETAL: No muscle atrophy, erythema, or edema noted. Mild tenderness over the lumbar spinous processes and also the SI joints bilaterally. Negative straight leg test bilaterally. DP pulse +2 bilaterally. Strength 5/5 throughout. NEURO: Patient was alert and oriented to person place and time. Normal sensation to touch. No focal neurological deficits. Medical Decision & Procedures ER Provider Diagnostic Interpretation: Chest x-ray IMPRESSION: 1. No pneumothorax. 2. Probable acute minimally displaced anterior left seventh rib fracture. Electronically signed by: Blaine Wakefield M.D. 09/12/2017 6:19 PM Dictated Date/Time: 09/12/2017 6:15 PM The status of this report is Signed. L spine CT IMPRESSION: No fractures within the lumbar spine. Electronically signed by: Ronny Brambila M.D. 09/12/2017 6:07 PM Dictated Date/Time: 09/12/2017 6:04 PM Medications Administered Medications (Trade) Dose Ordered Sig/Castillo Route Start Time Stop Time Status Last Admin Dose Admin Ibuprofen (Motrin Tab) 400 mg ONE STAT PO 09/12/17 17:26 09/12/17 17:28 DC 09/12/17 18:12 400 MG Oxycodone/ Acetaminophen (Percocet 5-325mg Tab) 1 tab NOW STAT PO 09/12/17 17:26 09/12/17 17:28 DC 09/12/17 18:12 1 TAB Cyclobenzaprine HCl (Flexeril Tab) 10 mg NOW STAT PO 09/12/17 17:26 09/12/17 17:28 DC 09/12/17 18:11 10 MG Lidocaine (Lidoderm Patch 5%) 1 patch ONE STAT TD 09/12/17 18:35 09/12/17 18:36 DC 09/12/17 18:53 1 PATCH ED Course The patient was seen and examined He was medicated with Percocet, ibuprofen and Flexeril Imaging was performed and reviewed Upon reevaluation, he was resting fairly comfortably in bed. We discussed the results of his workup. He voiced understanding. The case was discussed with my supervising physician who personally evaluated the patient. The patient was given a Lidoderm patch. He was also given an incentive spirometer Discharge instructions were reviewed, and he was discharged in good condition Medical Decision Differential diagnosis: Spine fracture, ligamentous injury, subluxation, spondylolisthesis, spondylosis, herniated disc, contusion, muscle spasm, rib contusion, fracture, pneumothorax, hemothorax This patient is a 71-year-old male presents to the emergency department with low back pain and rib pain after a fall. The patient does not take any anticoagulation. On exam, he had some tenderness over the left anterior ribs. He also had some tenderness over the area lower lumbar spinous processes. And the SI joint bilaterally. He was neurovascularly intact. The patient's imaging is consistent with a minimally displaced left acute anterior rib fracture. No signs of pneumothorax. I believe he is stable to be discharged home. He will be sent home with a Lidoderm patch, short course of narcotics in addition to a muscle relaxant. He will follow up closely with his primary care physician. He agrees to return to the emergency department immediately with any worsening symptoms. This chart was completed in part utilizing ePrep Speech Voice Recognition software. Attempts were made to minimize the grammatical errors, random word insertions, pronoun errors and incomplete sentences. Any formal questions or concerns about the content, text or information contained within the body of this dictation should be directly addressed to the provider for clarification. Medication Reconcilliation Current Medication List: was personally reviewed by me Blood Pressure Screening Patient's blood pressure: Normal blood pressure Impression Primary Impression: Fall Additional Impression: Left rib fracture Departure Information Dispostion Home / Self-Care Condition GOOD Prescriptions Lidocaine (LIDOCAINE) 5 % Pad 1 PATCH TD DAILY for Pain for 30 Days, #30 PATCH Prov: Olga Bianchi PA-C 09/12/17 Cyclobenzaprine Hcl (FLEXERIL) 10 Mg Tab 10 MG PO TID for Muscle Spasms, #20 TAB Prov: Olga Bianchi PA-C 09/12/17 Oxycodone/Acetaminophen 5MG/325MG (PERCOCET 5MG/325MG) Tab 1-2 TABS PO Q4H Y for Pain, #15 TAB For Initial Treatment Prov: Olga Bianchi PA-C 09/12/17 Referrals Elina Diez M.D. (PCP) Patient Instructions Fx Rib, My [facility] Additional Instructions You had been evaluated in the emergency department for low back pain and rib pain resulting from a fall. You have broken your left seventh rib. Please keep the Lidoderm and patch. Replace it daily. Please use the incentive spirometer 8-10 times per hour for the first week. This is to prevent pneumonia. Ibuprofen 600 mg every 6 hours for pain Percocet 1-2 tabs every 4 hours for severe pain. Do not drink alcohol or drive while taking this medication. This may be taken with ibuprofen, but avoid Tylenol. Flexeril every 8 hours as needed for muscle spasm/pain. Please also do not drink alcohol or drive while taking this medication. No strenuous activity until your back is feeling better. Please follow up closely with your primary care physician, ideally in the next 2 -3 days. Please do not hesitate to return to the emergency department with any new, worsening or concerning symptoms; especially, severe weakness in the lower extremities, urinary or bowel incontinence, difficulty breathing or worsening pain in your chest Work Instructions Return To Work: 2 days Problem Qualifiers
--- NOTE | 2017-09-12 18:09 | DIAGNOSTIC IMAGING REPORT ---
LUMBAR SPINE CT CT DOSE: 1414.98 mGy.cm HISTORY: Fall. Bilateral leg pain. Pain. TECHNIQUE: Multiaxial CT images of the lumbar spine were performed and reformatted in the sagittal and coronal plane without the use of contrast. A dose lowering technique was utilized adhering to the principles of ALARA. COMPARISON: None. FINDINGS: No fractures. No subluxation. Paraspinal soft tissues are unremarkable. No significant central canal narrowing by CT technique. IMPRESSION: No fractures within the lumbar spine. Electronically signed by: Ronny Brambila M.D. 09/12/2017 6:07 PM Dictated Date/Time: 09/12/2017 6:04 PM
--- NOTE | 2017-09-12 18:20 | DIAGNOSTIC IMAGING REPORT ---
L RIBS UNILATERAL WITH PA CHEST CLINICAL HISTORY: L anterior mid rib pain s/p fall COMPARISON STUDY: Chest radiograph June 01, 2016. FINDINGS: There is no pneumothorax or pleural effusion. Minimal bibasilar opacities favor atelectasis. Cardiac size is normal. Mediastinal contours are normal. There is a probable acute minimally displaced fracture of the anterior left seventh rib. There are several old left-sided rib fractures. IMPRESSION: 1. No pneumothorax. 2. Probable acute minimally displaced anterior left seventh rib fracture. Electronically signed by: Blaine Wakefield M.D. 09/12/2017 6:19 PM Dictated Date/Time: 09/12/2017 6:15 PM
[2017-09-12] MEDS ORDERED: OXYC-57 PO (18:32)
[2017-09-12] MEDS ORDERED: CYCL10TA6 PO (18:32)
[2017-09-12] MEDS ORDERED: LIDODERM (LIDOCAINE) PATCH 5% TD STA (18:35)
[2017-09-12] MEDS ORDERED: LIDO1PAD2 TD (18:37)
[2017-09-12 18:45] VITALS: BP 123/82; PULSE 88; O2SAT 99
--- NOTE | 2017-09-13 02:22 | EMERGENCY ROOM VISIT NOTE ---
ED Visit Note First contact with patient: 17:10 HPI: 71M mechanical fall. Plan: Probable acute minimally displaced anterior left seventh rib fracture. Normal sats. Plan for pain control, IS, PCP f/u. I reviewed the patient's past medical history, medications, and visit nursing notes. I discussed the case with the physician speech therapy assistant, examined the patient, and agree with the findings and plan as documented in the physician assistants note.
== END 2017-09-12 19:15 | disposition home or self-care (01) ==
LOC: C.EDB 16:39 → C.EDD 19:15
DX: S22.32XA Fracture of one rib, left side, initial encounter for closed fracture (principal); W01.0XXA Fall on same level from slipping, tripping and stumbling without subsequent striking against object, initial encounter; E11.9 Type 2 diabetes mellitus without complications; I10 Essential (primary) hypertension; Z98.84 Bariatric surgery status; Z85.46 Personal history of malignant neoplasm of prostate; Z82.49 Family history of ischemic heart disease and other diseases of the circulatory system

== ENCOUNTER → 2017-09-30 | Outpatient (CLI) | payer OTHER ==
[~2017-09-30] MED LIST changes: +LIDO1PAD2 TD; +OXYC-57 PO
[2017-09-30 13:12] LABS: HEMOGLOBIN A1C 5.8 % (4.5-5.6)
[2017-09-30 13:39] LABS: ALBUMIN 3.9 gm/dl (3.4-5.0); ALT/SGPT 90 U/L (12-78); AST/SGOT 52 U/L (15-37); BLOOD UREA NITROGEN 17 mg/dl (7-18); CALCIUM 9.4 mg/dl (8.5-10.1); CARBON DIOXIDE 28 mmol/L (21-32); CHOLESTEROL 153 mg/dl (0-200); CREATININE 0.95 mg/dl (0.60-1.40); GLUCOSE 100 mg/dl (70-99); POTASSIUM 3.8 mmol/L (3.5-5.1); SODIUM 138 mmol/L (136-145)
[2017-09-30 13:43] LABS: ALKALINE PHOSPHATASE 163 U/L (45-117); LDL CHOLESTEROL CALCULATED 79 mg/dl; TOTAL PROTEIN 7.7 gm/dl (6.4-8.2)
== END ==
LOC: C.LABMFLN 08:52
PROVIDERS: ATTEND Family Medicine
DX: E11.9 Type 2 diabetes mellitus without complications (principal); E78.5 Hyperlipidemia, unspecified

== ENCOUNTER → 2017-10-07 | Outpatient (CLI) | payer OTHER ==
--- NOTE | 2017-10-07 08:43 | DIAGNOSTIC IMAGING REPORT ---
ABDOMEN LIMITED (US) HISTORY: 72 years-old Male HEPATIC CIRRHOSIS cirrhotic liver disease COMPARISON: CT abdomen and pelvis 02/04/2017 TECHNIQUE: Multiple real-time significant images of the abdominal right upper quadrant were obtained assessing grayscale appearance and color flow FINDINGS: The pancreas is obscured by bowel gas. Prior cholecystectomy. The liver appears heterogeneous with increased echogenicity. Liver also appears mildly enlarged, 19.5 cm. Common bile duct is normal, 5 mm. No intrahepatic biliary ductal dilation or focal hepatic mass lesions. There is mild marginal nodularity of the liver suggesting cirrhosis. No ascites. Imaged right kidney is unremarkable, 12.7 cm without hydronephrosis. IMPRESSION: 1. Heterogeneous echogenic appearance of the liver with mild marginal nodularity suggesting cirrhotic liver disease. No associated ascites identified. 2. Prior cholecystectomy. 3. No biliary ductal dilation. The above report was generated using voice recognition software. It may contain grammatical, syntax or spelling errors. Electronically signed by: Zeb Abdullahi M.D. 10/07/2017 8:41 AM Dictated Date/Time: 10/07/2017 8:38 AM
== END | disposition home or self-care (01) ==
LOC: C.ULTR 07:59
PROVIDERS: ATTEND Family Medicine
DX: K74.60 Unspecified cirrhosis of liver (principal); Z90.49 Acquired absence of other specified parts of digestive tract

== ENCOUNTER → 2017-10-11 | Outpatient (CLI) | payer OTHER ==
[2017-10-11 18:16] LABS: BLOOD UREA NITROGEN 17 mg/dl (7-18); CREATININE 0.84 mg/dl (0.60-1.40)
== END | disposition home or self-care (01) ==
LOC: C.LABMFLN 11:24
PROVIDERS: ATTEND Urology
DX: N40.0 Benign prostatic hyperplasia without lower urinary tract symptoms (principal)

== ENCOUNTER → 2017-10-31 | Outpatient (CLI) | payer OTHER ==
[2017-10-31 14:03] VITALS: BP 96/63; PULSE 92; TEMP 36.4; O2SAT 94
--- NOTE | 2017-10-31 16:14 | Radiation Oncology Follow-Up ---
Radiation Oncology Follow-Up Date of Visit Oct 31, 2017. Reason For Visit One-month follow-up and cancer survivorship care plan Radiation Completion Date finished 09-27-2017 Diagnosis (1) Prostate cancer Status: Acute Onset Date: 01/23/2017 Stage: lll Permanent Comment: Rise in PSA, pretreatment 10.0 Status post ultrasound-guided biopsies 01/23/2017. Adenocarcinoma the prostate [place] 4+5 and 5+5 Prostate volume 45.4 Prostate density 0.220 Status post robotic assisted radical prostatectomy and lymph node dissection Acinar adenocarcinoma the prostate [place] 4+5 Extraprostatic extension Stage pT3a [id number] Post-prostatectomy PSA 1.310 on 04/23/2017, 1.950 on 06/03/2017 Initiation of hormonal suppression 07/09/2017 Lupron [address] Sutherland's office with recommendation of 2 years of hormonal suppression Status post completion of salvage radiation therapy September 27, 2017. He received 7020 cGy utilizing volumetric arc therapy. Last Edited By: Zohra Wolf on Oct 31, 2017 16:08 History of Present Illness Mr. Key is without a family history of prostate cancer. The patient's father however was at age 54 from lung cancer. The patient does have 2 sons age 41 and 44. He had received prostate-specific antigens in the distant past but more recently his PCP recommended a prostate-specific antigen. This was drawn on 12/03/2016. The value was 10.2. The patient was therefore referred to Dr. Twan Sutherland who initially saw him on 12/12/2016. His examination at that time showed no evidence of nodularity however due to the elevated prostate-specific antigen and no recent prior prostate-specific antigens a repeat prostate-specific antigen was ordered and performed on 2016. This remained elevated at 10.0. Dr. Sutherland therefore recommended ultrasound-guided prostate biopsies. On 01/23/2017 patient underwent ultrasound-guided biopsies. A total of 14 biopsies were taken. The 2 biopsies from the left and right base the right mid gland the right apex and the single biopsy from the right anterior were all benign. 2 of 2 biopsies from the left mid gland however revealed an adenocarcinoma Shiva grade 5+4 involving 10% and 5% of the core tissue samples respectfully. The [place] pattern 5 represented 90% of the tumor. No perineural invasion was noted. 2 of 2 biopsies from the left apex were positive for adenocarcinoma [place] grade 5+4 involving 30% and 60% of the core tissue samples respectfully. The [place] grade 5 represented 90% of the carcinoma. No perineural invasion was seen. One biopsy from the left anterior gland was positive for adenocarcinoma Shiva grade 5+5 involving 30% of the core tissue sample. Therefore a total of 5 out of 14 biopsies were positive on the left. 4 of them were [place] grade 5+4 with 90% Shiva grade 5 and one was [place] grade 5+5. Case: [id number]. Patient returned to discuss these findings with Dr. Sutherland. He ordered staging procedures that included a whole-body bone scan and a CT scan of the abdomen and pelvis which were performed on 02/04/2017. No evidence of metastatic disease was identified. Dr. Sutherland spoke with the patient about a radical robotic prostatectomy and this has been scheduled for March 07. The robotic-assisted retropubic radical prostatectomy was performed on 2016. This revealed Acinar adenocarcinoma. The primary [place] pattern was 4. The secondary Shiva pattern was 5. There was no tertiary pattern. His total [place] score was 9. The estimated percentage of prostate involvement was 10%. There was focal extraprostatic extension at the left posterior. There is no bladder involvement. No seminal vesicle involvement. The margins were uninvolved. There was no lymphovascular invasion. There was perineural invasion. 5 lymph nodes were evaluated. None showed metastatic disease. One lymph node was evaluated on the right and 4 lymph nodes on the left. He is pathologic staging was pT3a pN0. He is steadily recuperated from his surgery. Initially he was using 14 pads per day. He is now using 6 pads per day. His incontinence at night is also greatly improved. He only needs one pad at night. He is being treated with physical therapy. He is been having therapy for 5 weeks. Following the surgery he was on Ditropan. This is continued. Most recently he was started on mirabeqron. Following the prostatectomy he had a PSA 04/23/2017 that was 1.310. This was repeated on 06/03/2017 and was 1.950. With this elevation of the PSA he was started on hormone suppression. On 07/09/2017 he was given Lupron 30 mg IM. He is tolerating the medication well and denies hot flashes. He's been referred back to our office to discuss salvage radiation therapy. Status post completion of radiation therapy September 27, 2017. He received 7020 cGy utilizing volumetric modulated radiation therapy. Interim History He has been doing well over the past month. He had been having some mild dysuria. This is nearly resolved. He does have fatigue. He has associated hot flashes with the hormone suppression. Today he gave an AUA score of 5. He completed and expanded prostate cancer index composite for clinical practice and gave a score of 7 of 12 and urinary incontinence symptoms. He gave a score of 1 of 12 and urinary irritation symptoms. He gave a score of 0 12 and bowel symptoms. He gave a score of 12 of 12 and sexual symptoms. He gave a score of 5 of 12 and hormonal vitality symptoms. His total was 25 of 60. He had a recheck PSA October 11, 2017. This was found to be less than 0.010. He had a recheck appointment with Dr. Sutherland last week. Allergies Coded Allergies: No Known Allergies (Unverified , 03/07/17) Home Medications Scheduled Biotin (Biotin), 1,000 MCG PO QAM Calcium Carbonate (Calcium), 1,000 MG PO QAM Cyanocobalamin (Vitamin B-12), 1,000 MCG PO QAM Losartan Potassium (Cozaar), 25 MG PO QAM Mirabegron (Myrbetriq Er), 50 MG PO DAILYBB Multivitamin (Multivitamin), 2 TAB PO QAM Trospium Chloride (Trospium Chloride Er), 60 MG PO DAILY Scheduled PRN Desonide 0.05% (Desowen 0.05%), 1 APPLN TOP BID PRN for Psoriasis Flares Sildenafil Citrate (Viagra), 100 MG PO DAILY PRN for ED Temazepam (Restoril), 15 MG PO HS PRN for Insomnia Review of Systems Gastrointestinal: Symptoms: WNL Oral: Symptoms: No Problems Respiratory: Symptoms: WNL Urinary: Symptoms: Nocturia Comments: nocturia times 2 - 3 , dribbling and leakage Skin: Symptoms: No Problems Physical Exam Vital Signs Date Time Temp Pulse Resp B/P (MAP) Pulse Ox O2 Delivery O2 Flow Rate FiO2 10/31/17 14:03 36.4 92 18 96/63 94 Fatigue: None General Appearance: no apparent distress Eyes: normal inspection, EOMI ENT: normal ENT inspection, hearing grossly normal Neck: no adenopathy, thyroid normal Respiratory/Chest: lungs clear, no respiratory distress, no accessory muscle use Cardiovascular: regular rate, rhythm, no gallop, no murmur Abdomen: non tender, soft, no organomegaly Extremities: no pedal edema Neurologic/Psychiatric: no motor/sensory deficits, alert, normal mood/affect Skin: warm/dry Pain Management Patient Reports Pain: No Side: Bilateral Patient Preferred Pain Scale: 0 - 10 Initial Pain Intensity: 0.0 Pain Management Plan He denies pain therefore requires no pain management. Laboratory Laboratory Results: were reviewed Laboratory Comments: Reviewed in the interim history. Pathology Pathology Results: were reviewed, and pertinent findings noted in HPI Imaging Imaging Studies: not applicable Assessment & Plan Plan: Continue regular follow-up with Dr. Sutherland. He has a recheck visit and to have a PSA in 6 months. Hormone suppression has been recommended for a total of 2 years. He continues the injections through Dr. Sutherland's office. We discussed vitamin E for the hot flashes. We also discussed the use of Effexor in low doses to help with hot flashes. He is not interested in using this medication currently. He has an appointment scheduled to see Dr. Sutherland in 6 months. I asked him to return to our office in 1 year. He may call if he has any questions or concerns in the interim. Today we completed a cancer survivorship care plan. A copy of the document was given the patient. He was given a survivorship booklet. Total Time In Follow-Up I spent 20 minutes speaking to the patient in performing examination. I spent 20 minutes reviewing information, preparing the survivorship document, and completing this note. Copy To Elina Diez M.D.; Twan Sutherland MD, Urology
== END | disposition home or self-care (01) ==
LOC: C.ONC 13:56
PROVIDERS: ATTEND Physician Assistant Medical
DX: Z08 Encounter for follow-up examination after completed treatment for malignant neoplasm (principal); Z92.3 Personal history of irradiation; Z85.46 Personal history of malignant neoplasm of prostate

== ENCOUNTER → 2018-03-10 | Outpatient (CLI) | payer OTHER ==
[~2018-03-10] MED LIST changes: -LIDO1PAD2 TD; -OXYC-57 PO
[2018-03-10 18:13] LABS: BASO % 0.2 %; BASO ABS # 0.01 K/uL (0-0.2); EOS % 2.4 %; HEMATOCRIT 43.9 % (42-52); HEMOGLOBIN 14.8 g/dL (14.0-18.0); LYMPH % 27.9 %; LYMPH ABS # 1.18 K/uL (1.2-3.4); MEAN CELL VOLUME 91.6 fL (80-100); MEAN CORPUSCULAR HEMOGLOBIN 30.9 pg (25-34); MEAN CORPUSCULAR HGB CONC 33.7 g/dl (32-36); MEAN PLATELET VOLUME 9.4 fL (7.4-10.4); MONO ABS # 0.38 K/uL (0.11-0.59); NEUT % 60.5 %; NEUT ABS # 2.56 K/uL (1.4-6.5); PLATELET COUNT 185 K/uL (130-400); RED CELL DISTRIBUTION WIDTH SD 47.1 fL (36.4-46.3); WHITE BLOOD COUNT 4.23 K/uL (4.8-10.8)
[2018-03-10 18:53] LABS: ALBUMIN 3.7 gm/dl (3.4-5.0); ALKALINE PHOSPHATASE 163 U/L (45-117); ALT/SGPT 75 U/L (12-78); AST/SGOT 53 U/L (15-37); BLOOD UREA NITROGEN 17 mg/dl (7-18); CALCIUM 8.7 mg/dl (8.5-10.1); CARBON DIOXIDE 29 mmol/L (21-32); GLUCOSE 102 mg/dl (70-99); POTASSIUM 4.3 mmol/L (3.5-5.1); SODIUM 135 mmol/L (136-145); TOTAL PROTEIN 7.7 gm/dl (6.4-8.2)
== END | disposition home or self-care (01) ==
LOC: C.LABMFLN 12:06
PROVIDERS: ATTEND Family Medicine
DX: E11.9 Type 2 diabetes mellitus without complications (principal)